=== PATIENT | male | born 1980 | race Caucasian/White ===

== ENCOUNTER 2024-02-02 16:21 | Emergency (ER) | payer BC, SELFPAY ==
[2024-02-02 16:22] VITALS: BP 149/81
[2024-02-02 16:40] LABS: % Basophils 0.3 % (0-2); % Eosinophils 0.5 % (0-6); % Immature Granulocytes 0.2 % (0-0.5); % Lymphocytes 13.4 % (20.5-51.1); % Monocytes 5.1 % (1.7-9.3); % Neutrophils 80.5 % (42.2-75.2); Absolute Eosinophils 0.1 10^3/uL (0-0.7); Absolute Lymphocytes 1.8 10^3/uL (1.2-3.4); Absolute Monocytes 0.7 10^3/uL (0.1-0.6); Absolute Neutrophils 10.5 10^3/uL (1.4-6.5); Hematocrit 44.2 % (39.0-52.0); Hemoglobin 15.3 g/dL (13.0-18.0); Mean Corp Hgb Conc. 34.6 g/dL (33.0-37.0); Mean Corpuscular Hgb 27.9 pg (27.0-31.0); Mean Corpuscular Volume 80.5 fL (80.0-94.0); Mean Platelet Volume 10.5 fL (7.4-10.4); Nucleated Red Blood Cells % 0 % (-); Platelet Count 176 10^3/uL (130-400); Red Blood Cell Count 5.49 10^6/uL (4.70-6.10); Red Cell Dist. Width 13.9 % (11.5-14.5)
[2024-02-02 16:55] LABS: ALT (SGPT) 28 U/L (0-50); AST (SGOT) 30 U/L (17-59); Albumin 4.6 g/dl (3.5-5.0); Alkaline Phosphatase 57 U/L (38-126); Blood Urea Nitrogen 14 mg/dl (9-20); Calcium 9.3 mg/dl (8.4-10.2); Carbon Dioxide 29 mmol/L (22-30); Chloride 100 mmol/L (98-107); Glucose 113 mg/dl (70-99); Potassium 3.7 mmol/L (3.5-5.1); Sodium 134 mmol/L (135-145); Total Bilirubin 0.9 mg/dl (0.2-1.3); Total Protein 7.4 g/dl (6.3-8.2); eGFR > 60.00
[2024-02-02 16:56] LABS: COVID-19 Antigen Negative (Negative)
--- NOTE | 2024-02-02 17:15 | ED.GENMED ---
History of Present Illness
General
Chief Complaint: Skin Problem
Time Seen by Provider: 02/02/24 16:49
History of Present Illness
History of Present Illness:
40-year-old male presents the emergency department for evaluation of left upper arm swelling and pain as well as tactile fevers and chills. 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 Symptoms
began shortly after that time. Denies any chest pain but does have a fever of 100.3 earlier today.
Past History
Past History
ED Past Medical History: HTN (takes Diovan)
ED Past Surgical History: Other (ENT)
Social History
Tobacco: Non-smoker
Alcohol: Occasional
Drug: None
Personal:
Living: with family
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
Review of Systems
Review of Systems
Allergies reviewed?: Yes
All Other Systems: ROS reviewed and negative except as documented in HPI and ROS
Phy Exam
Physical Exam
Physical Exam:
GEN: Well appearing, NAD, WDWN
HEENT: Oral mucosa moist, no scleral icterus
Cardiac: Regular rate
Lung: No respiratory distress, no tachypnea
MSK: No gross deformity or injuries. Erythema to the left medial antecubital fossa extending to the proximal arm and overlying the medial upper condyle, quite firm and tender to palpation
Skin: Good color, no pallor or jaundice, no rashes
Neuro: AO x3, moves all extremities freely
Psych: Calm, cooperative
Course
Orders/Labs/Results
Orders:
Orders
02/02/24 16:29
Arms, left US [US Periph Venous UPPER Ext LT] Urgent
Comment: recent IV
Reason For Exam: swelling and redness in left antecube area
02/02/24 16:34
COVID-19 Antigen Urgent
Source: Nasal Swab
Complete Blood Count/With Diff Urgent
Comprehensive Metabolic Panel Urgent
02/02/24 17:16
Cephalexin Monohydrate [Keflex] 500 mg PO NOW STA
Abnormal Lab Results
02/02/24
16:34
WBC 13.0 H 10^3/uL
(4.8-10.8)
MPV 10.5 H fL
(7.4-10.4)
Absolute Neuts (auto) 10.5 H 10^3/uL
(1.4-6.5)
Absolute Monos (auto) 0.7 H 10^3/uL
(0.1-0.6)
Neutrophils % 80.5 H %
(42.2-75.2)
Lymphocytes % 13.4 L %
(20.5-51.1)
Sodium 134 L mmol/L
(135-145)
Glucose 113 H mg/dl
(70-99)
02/02/24 16:34
02/02/24 16:34
Vital Signs
Initial and Last Documented VS:
Initial Vital Signs
Temp Pulse Resp BP Pulse Ox
99.6 F 92 18 149/81 98
02/02/24 16:22 02/02/24 16:22 02/02/24 16:22 02/02/24 16:22 02/02/24 16:22
Last Documented Vital Signs
Temp Pulse Resp BP Pulse Ox
99.6 F 92 18 149/81 98
02/02/24 16:22 02/02/24 16:22 02/02/24 16:22 02/02/24 16:22 02/02/24 16:22
MDM/Problems Addressed
MDM/Problems Addressed:
Ultrasound confirms superficial thrombophlebitis which is likely contributing to worsening cellulitis at this time. Will start the patient on aspirin and antibiotics
*Critical Care Note
Total Time (30-74mins, 75-104mins- exclusive of procedures): Not Applicable
ED Attending Note
-
Portions of this chart may have been created with voice recognition software.� Occasional wrong word or��sound alike� substitutions may have occurred due to the inherent limitations of voice recognition software.
Discharge Plan
Departure
Patient Disposition: Home (Routine Discharge)
Date of Disposition: 02/02/24
Time of Disposition: 17:15
Patient with high blood pressure during this ER visit?: No
Discharge Problem:
Cellulitis of left upper arm, Superficial thrombophlebitis of left upper extremity
Instructions: Cellulitis (Skin Infection), Adult (DC)
Prescriptions:
New
cephalexin 500 mg capsule
500 mg PO QID 7 Days Qty: 28 0RF
No Action
sulfamethoxazole-trimethoprim 1 TABLET tablet
1 tab PO BID Qty: 14 0RF
metronidazole 500 MG tablet
500 mg PO TID Qty: 21 0RF
dicyclomine 20 MG tablet
20 mg PO QIDPRN PRN (Reason: abdominal pain) Qty: 20 0RF
prednisone 50 MG tablet
50 mg PO DAILY Qty: 4 0RF
oxycodone-acetaminophen [Percocet] 5-325 mg tablet
1 tab PO Q4HPRN PRN (Reason: pain) Qty: 10 0RF
ibuprofen 600 mg tablet
600 mg PO Q6H Qty: 20 0RF
Referrals:
Naa Nogueira MD [Family Provider] -
Stand Alone Forms: Return to Work
Activity Restrictions/Additional Instructions:
Warm compresses to the arm twice per day
Full dose (325mg) aspirin once per day for 10-14 days
Take the antibiotics in full
Return if symptoms worsen
Interventions
Interventions:
*Risk Screen - Suicide Last Done: 02/02/24 16:24
*General Assessment Last Done: 02/02/24 16:24
*Neglect/Abuse Screening Last Done: 02/02/24 16:24
*Nursing Disposition Last Done: 02/02/24 17:56
ED-Skin Assessment Last Done: 02/02/24 17:15
Discharge Date and Time
Discharge Date/Time: 02/02/24 17:57
Print Language: LIBERIAN
[2024-02-02] MEDS: KEFLEX 500 MG PO (17:23)
== END 2024-02-02 17:57 | disposition home or self-care (01) ==
LOC: EMR 16:21
PROVIDERS: EMERGENCY PHYSICIAN Emergency Medicine; FAMILY PHYSICIAN Family Medicine
DX: L03.114 Cellulitis of left upper limb (principal); I80.8 Phlebitis and thrombophlebitis of other sites
CPT/HCPCS: 99284; 80053; 85025; 87811; 93971

== ENCOUNTER 2024-02-06 21:41 | Inpatient (IN) | payer BC, SELFPAY ==
[2024-02-06 17:45] VITALS: BP 182/110
--- NOTE | 2024-02-06 18:23 | ED.GENMED ---
History of Present Illness
<Jeramy Parikh PA-C - Last Filed: 02/06/24 22:30>
General
Chief Complaint: Skin Problem
Time Seen by Provider: 02/06/24 18:18
History of Present Illness
History of Present Illness:
43-year-old male with history of hypertension and hyperlipidemia presents to the emergency department for evaluation of worsening left upper arm swelling and redness. I saw him 4 days ago in this emergency department and started him on cephalexin,
he was prescribed a 7-day course however he completed the antibiotics today. He states that the symptoms have worsened despite that. Denies any fevers or chills. The initial event started shortly after having an IV placed as part of a training
session as he works for [employer]. Of note during his last ER visit an ultrasound was obtained showingA focal nonocclusive thrombus within the basilic vein in the antecubital fossa with no evidence for DVT
Past History
<Jeramy Parikh PA-C - Last Filed: 02/06/24 22:30>
Past History
ED Past Medical History: HTN (takes Diovan)
ED Past Surgical History: Other (ENT)
Social History
Tobacco: Non-smoker
Alcohol: Occasional
Drug: None
Personal:
Living: with family
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
Review of Systems
<Jeramy Parikh PA-C - Last Filed: 02/06/24 22:30>
Review of Systems
Allergies reviewed?: Yes
All Other Systems: ROS reviewed and negative except as documented in HPI and ROS
Phy Exam
<Jeramy Parikh PA-C - Last Filed: 02/06/24 22:30>
Physical Exam
Physical Exam:
GEN: Well appearing, NAD, WDWN
HEENT: Oral mucosa moist, no scleral icterus
Cardiac: Regular rate and rhythm
Lung: No respiratory distress, no tachypnea
MSK: No gross deformity or injuries
Skin: Good color, no pallor or jaundice. There is a 3 cm x 3 cm fluctuant abscess to the left medial antecubital fossa, bedside ultrasound reveals heterogenous fluid collection with no evidence of Doppler flow or vasculature within the abscess.
There is erythema extending Proximally along the medial upper arm and distally to the forearm
Neuro: AO x3, moves all extremities freely
Psych: Calm, cooperative
Course
<Jeramy Parikh PA-C - Last Filed: 02/06/24 22:30>
Orders/Labs/Results
Orders:
Orders
02/06/24 19:29
Complete Blood Count/With Diff Urgent
Comprehensive Metabolic Panel Urgent
02/06/24 19:32
HYDROmorphone [Dilaudid] 0.5 mg IV NOW STA
02/06/24 19:58
Vancomycin [Vancocin] 2,000 mg 0.9% Sodium Chloride 500 ml [Nss] 500 ml IV NOW
02/06/24 20:00
VANCOMYCIN Pharmacy to Dose [VANCOCIN Pharmacy to Dose] 1 each Pharmacy To Prepare [Call Pharmacy To Prepare] 0 ml IV PER PROTOCOL
02/06/24 20:25
Wound Culture [Wound/Abscess/Other Culture] Urgent
ABDIRIZAK Source: Abscess
Specimen Description:
Date Specimen was Collected: 02/06/24
Time Specimen was Collected: 20:22
Comment: L arm
02/06/24 20:27
HYDROmorphone [Dilaudid] 0.5 mg IV NOW STA
02/06/24 21:27
Admit/Transfer Patient As Directed
Co-Sign Provider:
Level of Care: Inpatient admission
Assign to:: Medical/Surgical
Physician / Group: John
Diagnosis: LUE Cellulitis / Abscess
Reason for Hospitalization:
LUE Cellulitis / Abscess
Expected length of stay greater than two midnights?: Yes
ELOS- Estimated Length of Stay in days: 2
I certify the patient meets the requirements for IP care: Yes
Code Status As Directed
Resuscitation Status: Full Code
PRN Pain Medication Management As Directed
May give lesser potent ordered pain med per pt: Yes
preference::
Protocol:: Medication orders for pain may be administered in a
manner that supports deferring to patient preference
when the pt is:
- Requesting an ordered lesser potent pain medication.
Least to most potent pain medications are defined
as: acetaminophen < NSAID < tramadol < opioids
(morphine, oxycodone, hydromorphone).
- Requesting a lesser dose of the same medication IF
ORDERED.
- Requesting a less intrusive route of administration
if both routes are prescribed by the provider (PO <
IV).
02/06/24 21:29
Ketorolac [Toradol] 15 mg IV NOW STA
Abnormal Lab Results
02/06/24
19:29
MCV 79.6 L fL
(80.0-94.0)
Absolute Monos (auto) 0.7 H 10^3/uL
(0.1-0.6)
Lymphocytes % 14.8 L %
(20.5-51.1)
Chloride 97 L mmol/L
(98-107)
02/06/24 19:29
02/06/24 19:29
Vital Signs
Initial and Last Documented VS:
Initial Vital Signs
Temp Pulse Resp BP Pulse Ox
98 F 89 16 182/110 98
02/06/24 17:45 02/06/24 17:45 02/06/24 17:45 02/06/24 17:45 02/06/24 17:45
Last Documented Vital Signs
Temp Pulse Resp BP Pulse Ox
99.4 F 88 20 130/80 98
02/06/24 19:15 02/06/24 19:15 02/06/24 19:15 02/06/24 20:34 02/06/24 19:45
<Negrita Moon MD - Last Filed: 02/06/24 21:00>
Orders/Labs/Results
Orders:
Orders
02/06/24 19:29
Complete Blood Count/With Diff Urgent
Comprehensive Metabolic Panel Urgent
02/06/24 19:32
HYDROmorphone [Dilaudid] 0.5 mg IV NOW STA
02/06/24 19:58
Vancomycin [Vancocin] 2,000 mg 0.9% Sodium Chloride 500 ml [Nss] 500 ml IV NOW
02/06/24 20:00
VANCOMYCIN Pharmacy to Dose [VANCOCIN Pharmacy to Dose] 1 each Pharmacy To Prepare [Call Pharmacy To Prepare] 0 ml IV PER PROTOCOL
02/06/24 20:25
Wound Culture [Wound/Abscess/Other Culture] Urgent
ABDIRIZAK Source: Abscess
Specimen Description:
Date Specimen was Collected: 02/06/24
Time Specimen was Collected: 20:22
Comment: L arm
02/06/24 20:27
HYDROmorphone [Dilaudid] 0.5 mg IV NOW STA
02/06/24 21:27
Admit/Transfer Patient As Directed
Co-Sign Provider:
Level of Care: Inpatient admission
Assign to:: Medical/Surgical
Physician / Group: John
Diagnosis: LUE Cellulitis / Abscess
Reason for Hospitalization:
LUE Cellulitis / Abscess
Expected length of stay greater than two midnights?: Yes
ELOS- Estimated Length of Stay in days: 2
I certify the patient meets the requirements for IP care: Yes
Code Status As Directed
Resuscitation Status: Full Code
PRN Pain Medication Management As Directed
May give lesser potent ordered pain med per pt: Yes
preference::
Protocol:: Medication orders for pain may be administered in a
manner that supports deferring to patient preference
when the pt is:
- Requesting an ordered lesser potent pain medication.
Least to most potent pain medications are defined
as: acetaminophen < NSAID < tramadol < opioids
(morphine, oxycodone, hydromorphone).
- Requesting a lesser dose of the same medication IF
ORDERED.
- Requesting a less intrusive route of administration
if both routes are prescribed by the provider (PO <
IV).
02/06/24 21:29
Ketorolac [Toradol] 15 mg IV NOW STA
Abnormal Lab Results
02/06/24
19:29
MCV 79.6 L fL
(80.0-94.0)
Absolute Monos (auto) 0.7 H 10^3/uL
(0.1-0.6)
Lymphocytes % 14.8 L %
(20.5-51.1)
Chloride 97 L mmol/L
(98-107)
02/06/24 19:29
02/06/24 19:29
Vital Signs
Initial and Last Documented VS:
Initial Vital Signs
Temp Pulse Resp BP Pulse Ox
98 F 89 16 182/110 98
02/06/24 17:45 02/06/24 17:45 02/06/24 17:45 02/06/24 17:45 02/06/24 17:45
Last Documented Vital Signs
Temp Pulse Resp BP Pulse Ox
99.4 F 88 20 130/80 98
02/06/24 19:15 02/06/24 19:15 02/06/24 19:15 02/06/24 20:34 02/06/24 19:45
Procedures
<Jeramy Parikh PA-C - Last Filed: 02/06/24 22:30>
Incision/Drainage/Joint Aspiration
Left Arm:
Anethesia: 1% Lidocaine with Epi
Preparation: cleaned with alcohol wipe
Type of procedure: incise and drain
Nature of site: abscess
Description of abscess: greater than 3cm
Loculations broken up: Yes
How much fluid was obtained?: large amount
Fluid description: purulent
Treatment: left open for drainage
<Jeramy Parikh PA-C - Last Filed: 02/06/24 22:30>
MDM/Problems Addressed
MDM/Problems Addressed:
Given failure of outpatient treatment coupled with rapidly developing abscess will treat the patient with IV antibiotics and hospital admission. Bedside I&D was performed with good results. Wound culture sent
<Jeramy Parikh PA-C - Last Filed: 02/06/24 22:30>
*Critical Care Note
Total Time (30-74mins, 75-104mins- exclusive of procedures): Not Applicable
ED Attending Note
<Jeramy Parikh PA-C - Last Filed: 02/06/24 22:30>
-
Portions of this chart may have been created with voice recognition software.� Occasional wrong word or��sound alike� substitutions may have occurred due to the inherent limitations of voice recognition software.
<Negrita Moon MD - Last Filed: 02/06/24 21:00>
ED Attending Note
Patient seen and examined by attending physician: Yes
I performed the substantive portion of visit, reviewed & personally made and approve the management plan that is documented in note by myself or TERENCE.: Yes
ED Attending Note:
43 yr old male with L antecub fossa abscess, tx'd with keflex and getting worse. No f/shaking chills/vomiting. FROM L UE. Obvious area of abscess with surrounding red/warmth. IV abx, I and D, cxs, continued care. Not septic. Do not clinically
suspect nec fasc.
Discharge Plan
Departure
Patient Disposition: Admit
Date of Disposition: 02/06/24
Time of Disposition: 20:00
Admit to: Med/Surg
Presentation/result/management discussed w/ accepting MD/DO: Hospitalist
Discharge Problem:
Cellulitis of arm, left, Abscess of left upper extremity, Failure of outpatient treatment, Superficial thrombophlebitis of left upper extremity
Interventions
Interventions:
*Risk Screen - Suicide Last Done: 02/06/24 18:43
*General Assessment Last Done: 02/06/24 18:43
*Neglect/Abuse Screening Last Done: 02/06/24 18:43
ED- Fall Risk Assessment Last Done: 02/06/24 18:46
*ED COVID-19 Vaccine History Last Done: 02/06/24 18:43
ED-Skin Assessment Last Done: 02/06/24 18:43
[2024-02-06 18:43] VITALS: BMI 38.2
[2024-02-06 19:15] VITALS: BP 144/95
[2024-02-06 19:35] LABS: % Basophils 0.5 % (0-2); % Eosinophils 1.3 % (0-6); % Immature Granulocytes 0.3 % (0-0.5); % Lymphocytes 14.8 % (20.5-51.1); % Monocytes 8.5 % (1.7-9.3); % Neutrophils 74.6 % (42.2-75.2); Absolute Eosinophils 0.1 10^3/uL (0-0.7); Absolute Lymphocytes 1.3 10^3/uL (1.2-3.4); Absolute Monocytes 0.7 10^3/uL (0.1-0.6); Absolute Neutrophils 6.5 10^3/uL (1.4-6.5); Hematocrit 47.5 % (39.0-52.0); Hemoglobin 16.6 g/dL (13.0-18.0); Mean Corp Hgb Conc. 34.9 g/dL (33.0-37.0); Mean Corpuscular Hgb 27.8 pg (27.0-31.0); Mean Corpuscular Volume 79.6 fL (80.0-94.0); Nucleated Red Blood Cells % 0 % (-); Platelet Count 191 10^3/uL (130-400); Red Blood Cell Count 5.97 10^6/uL (4.70-6.10); Red Cell Dist. Width 13.8 % (11.5-14.5); White Blood Cell Count 8.7 10^3/uL (4.8-10.8)
[2024-02-06] MEDS: DILAUDID 0.5 MG IV ×2 (19:39→20:35)
[2024-02-06 19:57] LABS: ALT (SGPT) 33 U/L (0-50); AST (SGOT) 33 U/L (17-59); Albumin 4.9 g/dl (3.5-5.0); Alkaline Phosphatase 66 U/L (38-126); Blood Urea Nitrogen 15 mg/dl (9-20); Calcium 9.3 mg/dl (8.4-10.2); Carbon Dioxide 28 mmol/L (22-30); Chloride 97 mmol/L (98-107); Estimated Creatinine Clearance 113 ml/min; Glucose 86 mg/dl (70-99); Potassium 4.2 mmol/L (3.5-5.1); Sodium 141 mmol/L (135-145); Total Bilirubin 0.6 mg/dl (0.2-1.3); eGFR > 60.00
[2024-02-06 20:34] VITALS: BP 130/80
[2024-02-06] MEDS: VANCOCIN 540 MG IV (20:42)
--- NOTE | 2024-02-06 21:30 | HPS.HSE ---
Family Physician
-
Family Physician: Naa Nogueira
Chief Complaint
-
LUE Pain, swelling and redness
History of Present Illness
Patient is a 43y M with PMH significant for TBI, anxiety and insomnia who presents to ED complaining of LUE pain, swelling and redness. 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 About 4
days ago, he noted an area of swelling and redness in the L antecubital area. He presented to the ED here and was noted to have superficial thrombophlebitis of the L antecubital region with associated cellulitis. He was started on ASA and Keflex
at that time. Patient states that his symptoms did not change much in the past few days. Then today, he appreciated rather abrupt and progressive worsening of his symptoms. He noted significant pain and difficulty with movement of the LUE. He
returned the to the ED for evaluation.
He was noted to have an area of fluctuance c/w abscess formation and I&D was performed at the bedside by ED staff.
Patient continues to complain of significant pain following the procedure.
Medical History
Past Medical History
Past Medical History: Reports Other
Additional Past Medical History:
Anxiety / PTSD
TBI (2022)
Hypertension
TAMI on BiPAP
Insomnia
Obesity
Past Surgical History: Reports None
Social History
Tobacco: Non-smoker
Alcohol: Occasional
Drug: None
Family History
Family History: Not pertinent
Allergies / Home Medications
Allergies reflects when Allergies were last updated in [facility].
Home Medications with original date entered in [facility]
Allergy/Medication List:
Allergies
Allergy/AdvReac Type Severity Reaction Status Date / Time
levofloxacin [From Levaquin] Allergy pulmonary Verified 02/06/24 17:47
edema
Home Medications
clonazepam 1 mg tablet 1 mg PO HS PRN Insomnia 02/06/24
semaglutide (weight loss) 0.5 mg/0.5 mL subcutaneous pen injector (Wegovy) 0.5 mg SC QWEEK 02/06/24
testosterone cypionate 200 mg/mL intramuscular kit 200 mg IM Q2W 02/06/24
tramadol 25 mg tablet 25 mg PO Q6H PRN Pain / Headache 02/06/24
zolpidem 10 mg tablet (Ambien) 10 mg PO HS 02/06/24
Review of Systems
-
History Source: Patient
Constitutional: Reports Fever; Denies Fatigue or Chills
EENT: Denies Sore Throat
Respiratory: Denies Cough or Trouble Breathing
Cardiac: Denies Chest Pain or Palpitations
Abdomen/GI: Denies Abdominal Pain, Nausea, Vomiting or Diarrhea
: Denies Dysuria, Frequency or Flank Pain
Musculoskeletal: Reports Joint Pain, Joint Swelling, Muscle Pain and Edema
Skin: Reports Other (Redness)
Neurological: Denies Dizzy or Headache
Psych: Denies Depression or Anxiety
Physical Exam
Vital Signs
Vital Signs
Temp Pulse Resp BP Pulse Ox
99.4 F 88 20 130/80 98
02/06/24 19:15 02/06/24 19:15 02/06/24 19:15 02/06/24 20:34 02/06/24 19:45
Physical Exam
General: Other (43y M in mild distress due to LUE pain.)
HEENT: Moist mucous membranes, PERRLA and Other (Thick neck.)
Respiratory: Clear; No Wheezes, Rales or Rhonchi
Cardiac: S1/S2 and Regular Rhythm; No Murmur
GI: Soft, Non Tender, Non Distended and Normal Bowel Sounds
Musculoskeletal: No Clubbing, No Cyanosis and Other (ROM intact in the LUE. Some discomfort with elbow flexion - but movement intact.)
Skin: Other (LUE antecubital area with induration and focal tenderness. Some strikethrough over dressings applied to I&D / abscess area. No visible lymphangitis.)
Neuro: AO x 3
Laboratory Results
-
02/06/24 19:29
02/06/24 19:
Laboratory Results
Total Bilirubin 0.6 mg/dl (0.2-1.3) 02/06/24 19:29
AST 33 U/L (17-59) 02/06/24 19:
ALT 33 U/L (0-50) 02/06/24 19:29
Alkaline Phosphatase 66 U/L (38-126) 02/06/24 19:29
Impression/Plan
-
A/P: Patient is a 43y M with PMH significant for TBI, anxiety and insomnia who presents to ED complaining of LUE pain, swelling and redness.
LUE Cellulitis / Abscess
- Admit for further evaluation and treatment.
- Failed OP therapy with Keflex and now with new development of abscess.
- I&D done at the bedside in the ED.
- Follow-up culture data.
- Continue IV Vanco for now and adjust as needed.
- Supportive care, pain control, etc.
- Surgery evaluation in the event that additional I&D is needed.
Anxiety / PTSD
Insomnia
TAMI
- Stable. Continue nightly BiPAP - patient brought machine from home.
- Continue usual med regimen for now.
- Rx confirmed via PDMP.
Benign Hypertension
- Patient is not on any medications for BP as an outpatient.
- Follow BP and begin treatment if needed.
Hypogonadism
- Can hold testosterone during inpatient stay.
Obesity due to excess calories
- Affects all aspects of care.
- Hold Wegovy during inpatient stay.
- Encourage healthy diet and increased exercise with goal of weight loss.
DVT Prophylaxis: Lovenox
Code Status: Full
[2024-02-06] MEDS: TORADOL 15 MG IV (21:43)
[2024-02-06 23:53] VITALS: BP 142/92; BMI 36.6
[2024-02-07] MEDS: AMBIEN 10 MG PO ×2 (01:14→22:04)
[2024-02-07] MEDS: DILAUDID 0.5 MG IV ×2 (01:14→08:19)
[2024-02-07] MEDS: NSS 1000 IV ×2 (01:14→07:41)
[2024-02-07] MEDS: ZOSYN 50 IV ×3 (07:40→20:51)
[2024-02-07 07:45] VITALS: BP 158/97
--- NOTE | 2024-02-07 07:58 | PHA.VAN.IN ---
Assessment
- Assessment
Renal Function: Appears similar to baseline
Renal Function may be Overestimated due to: obesity
Concomitant Antimicrobials: pip/tazo
AUC Dosing Plan
- Dosing Variables
Dosing Weight (kg): 115
Dosing CrCl (ml/min): 100
Vd coefficient (L/kg): 0.6
- Empiric Dosing
Initial / Loading Dose: 2000 mg - given 02/05 ~2041
Maintenance Regimen: 1500 mg q12h - first dose now
Estimated AUC (mcg*h/mL): 530
Estimated Peak (mcg*h/mL): 33.5
Estimated Trough (mcg/ml): 13.4
Estimated Half Life (H): 7.9
- Monitoring
No levels ordered at this time: consider levels when pt nears steady state
Pharmacokinetics Vancomycin I
- -
Patient Age: 43
Patient Sex: Male
Vancomycin Day #: 1
Indication: Skin And Soft Tissue
Requesting Provider: ROBINA
Pertinent Antimicrobial Allergies:
levofloxacin -> pulmonary edema
Height / Weight:
Height 5 ft 10 in
Actual Weight 115.666 kg
Pertinent Past Medical History: BMI~36;TBI (2022)
- Vital Signs / Lab Results
Temp Pulse Resp BP Pulse Ox
97.6 F 84 20 142/92 98
02/06/24 23:53 02/06/24 23:53 02/06/24 23:53 02/06/24 23:53 02/07/24 01:00
Lab Results - Hematology
02/06/24
19:29
WBC 8.7
Lab Results - Chemistry
02/06/24
19:29
BUN 15
Creatinine 1.1
Estimated Creat Clear 113
Albumin 4.9
[2024-02-07 09:22] LABS: Hematocrit 44.2 % (39.0-52.0); Mean Corp Hgb Conc. 33.9 g/dL (33.0-37.0); Mean Corpuscular Hgb 28.2 pg (27.0-31.0); Mean Corpuscular Volume 83.1 fL (80.0-94.0); Mean Platelet Volume 10.2 fL (7.4-10.4); Platelet Count 182 10^3/uL (130-400); Red Blood Cell Count 5.32 10^6/uL (4.70-6.10); Red Cell Dist. Width 13.8 % (11.5-14.5); White Blood Cell Count 7.1 10^3/uL (4.8-10.8)
[2024-02-07 09:33] LABS: Blood Urea Nitrogen 14 mg/dl (9-20); Calcium 8.9 mg/dl (8.4-10.2); Carbon Dioxide 28 mmol/L (22-30); Chloride 100 mmol/L (98-107); Estimated Creatinine Clearance 101 ml/min; Glucose 85 mg/dl (70-99); Potassium 4.4 mmol/L (3.5-5.1); Sodium 140 mmol/L (135-145); eGFR > 60.00
[2024-02-07] MEDS: VANCOCIN 300 MG IV ×2 (09:47→16:42)
[2024-02-07] MEDS: VANCOCIN 300 ML IV ×2 (09:47→16:42)
[2024-02-07] MEDS: TORADOL 15 MG IV (09:48)
--- NOTE | 2024-02-07 11:19 | W.PN.HOSP.TC ---
Today's Communication/Plan
-
cont Vanco/Zosyn
Bcx
GenSx consult
CT LUE
Stop IVF
Assessment / Plan
Assessment / Plan
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 fluid collection was I&D in ED
A/P:
#L antecubital septic thrombophlebitis with abscess
CT LUE
VAnco/Zosyn
Bcx and Wound Cx
GenSx follow up
Pain mgmt
#TAMI
cont CPAP
#EssentiaL HTN
cont home meds
#Obesity
on Wygovi at home
DVT ppx lovenox
Full code'
I have spent at least 56min reviewing the chart, lab results and providing direct patient care
Anticipated Discharge: > 48 hours
Subjective/Interval History
-
Date of Service: February 07, 2024
Objective Data
-
Labs:
Laboratory Results
02/07/24
08:11
WBC 7.1
Hgb 15.0
Hct 44.2
Plt Count 182
Sodium 140
Potassium 4.4
Chloride 100
Carbon Dioxide 28
BUN 14
Creatinine 1.2
Glucose 85
Calcium 8.9
Vital Signs:
Vital Signs
Temp Pulse Resp BP Pulse Ox
97.9 F 72 20 158/97 99
02/07/24 07:45 02/07/24 07:45 02/07/24 07:45 02/07/24 07:45 02/07/24 07:45
I&O
02/06/24 02/07/24 02/08/24
06:59 06:59 06:59
Intake Total 480 / 480
Balance 480 / 480
Review of Systems
-
History Source: Patient
All other systems: Reviewed and negative
Musculoskeletal: Reports Other (severe LUE pain)
Physical Exam
-
General: No Apparent Distress
HEENT: Normocephalic
Respiratory: Clear to Auscultation
Cardiac: Regular Rhythm
GI: Soft, Nontender and Nondistended
Musculoskeletal: No Clubbing, No Cyanosis and Other (redness and swelling of L anecubital fossa)
Neuro: Awake, Alert, Oriented and AO x 3
Psych: Calm
[2024-02-07] MEDS: DILAUDID 1 MG IV ×3 (12:16→21:15)
--- NOTE | 2024-02-07 12:48 | CON.GS ---
Addendum entered and electronically signed by Dallin Rabago MD 02/07/24 13:12:
I saw and examined the patient independently.
The Supervisor Rice Milling's note was reviewed and I agree with the note, assessment and plan except where noted below.
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 He did have a minor I&D performed in the ED with some improvement however there is
still significant indurated skin with a necrotic center. He did undergo a CT of the left upper extremity which demonstrated a residual collection. General surgery was consulted to perform an I&D. Please see separate dictated note.
Continue IV antibiotics, can transition to oral on discharge per primary.
Wound care instructions reviewed with patient:
-Change packing daily.
-No bathing, soaking, swimming. Okay to shower shower (remove dressing before hand) soap and water, pat dry and then place a fresh iodoform packing into the wound.
This will continue to heal by secondary intention from the inside out. I explained that this may take 2 to 3 weeks to fully heal.
Please have the patient see me in the office 1 week from now to assess wound healing.
All questions answered, patient agreeable to plan of care above.
Original Note:
Consultation
-
Date/Time Consultation Requested: 02/07/24 1111
Requesting Provider: Nolan
Reason for Consultation: L antecubital thrombophlebitis
Medical History
-
Chief Complaint: pain to left antecub
History of Present Illness:
Mr Romo is a 43 yo right hand dominant male with a h/o tbi 2022, anxiety/ptsd, tami on bipap who presented with erythema to the left antecub which began about 3- 4 days ago after his arm was used by a trainee to practice IV insertion. I&D was
preformed in the ED with improvement in surrounding erythema however the area is still indurated with necrotic skin to the center. He notes that the pain is quite severe to the area. He denies fevers or chills. He denies pain or numbness. Pulses to
the extremity are strong.
Past Medical History
Past Medical History: Psychiatric (anxiety/ptsd) and Other (TAMI with BIPAP, TBI 2022)
Past Surgical History: None
Social History
Tobacco: Non-Smoker
Alcohol: Occasional
Personal:
Living: With Family
Family History
Family History: Reviewed & Not Pertinent
Allergies / Home Medications
Allergy/AdvReac Type Severity Reaction Status Date / Time
levofloxacin [From Levaquin] Allergy pulmonary Verified 02/06/24 17:47
edema
�Medication �Instructions �Recorded �Confirmed �Type
clonazepam 1 mg tablet 1 mg PO HSPRN PRN Insomnia 02/06/24 02/07/24 History
semaglutide (weight loss) 0.5 0.5 mg SC QWEEK Diabetes 02/06/24 02/06/24 History
mg/0.5 mL subcutaneous pen
injector (Wegovy)
testosterone cypionate 200 mg/mL 200 mg IM Q2W Hormonal Agent 02/06/24 02/06/24 History
intramuscular kit
tramadol 25 mg tablet 25 mg PO Q6H PRN Pain / Headache 02/06/24 02/06/24 History
zolpidem 10 mg tablet (Ambien) 10 mg PO HS Sleep 02/06/24 02/06/24 History
diphenhydramine HCl 50 mg capsule 50 mg PO HS Sleep 02/07/24 02/07/24 History
metoprolol succinate 50 mg 50 mg PO DAILY Blood Pressure 02/07/24 02/07/24 History
tablet,extended release 24 hr
valsartan 320 mg tablet 320 mg PO DAILY Blood Pressure 02/07/24 02/07/24 History
Review of Systems
-
History Source: Patient and Family
All other systems: Negative unless noted
A 10 point review of systems was completed, and was negative except as per HPI.
Physical Exam
Vital Signs
Temp Pulse Resp BP Pulse Ox
97.9 F 72 20 158/97 99
02/07/24 07:45 02/07/24 07:45 02/07/24 07:45 02/07/24 07:45 02/07/24 07:45
02/06/24 02/07/24 02/08/24
06:59 06:59 06:59
Actual Weight 115.666 kg
Body Mass Index (BMI) 36.6
Lab Results
02/07/24 08:11
02/07/24 08:11
WBC 7.1 10^3/uL (4.8-10.8) 02/07/24 08:11
Hgb 15.0 g/dL (13.0-18.0) 02/07/24 08:11
Hct 44.2 % (39.0-52.0) 02/07/24 08:11
Plt Count 182 10^3/uL (130-400) 02/07/24 08:11
Abs Immat Gran (auto) 0.0 10^3/uL (0-0.05) 02/06/24 19:29
Neutrophils % 74.6 % (42.2-75.2) 02/06/24 19:29
Physical Exam
General: Well Developed and Well Nourished
HEENT: Moist Mucous Membranes
Respiratory: Non Labored Respirations
GI: Soft, Non Tender and Non Distended
Skin: Warm and Dry
Neuro: Awake, Alert and AO x 3
Psych: Calm
Data Reviewed
-
CT Scan: Image Personally Visualized and interpreted, Report Reviewed by me, Discussed with Physician, Discussed with Nurse, Discussed with Patient and Discussed with Family
Labs: Labs Reviewed by me, Discussed with Physician, Discussed with Nurse, Discussed with Patient and Discussed with Family
Old Records: Reviewed
Assessment / Plan
-
43 yo male presenting with LUE edema, erythema and pain progressively worsening after IV insertion 3-4 days ago. s/p I&D in ED but with residual fluctuance and induration. CT of the LUE with abscess/fluid collection present. AFVSS. No leukocytosis.
Pain persistent. Wound and blood cx pending.
--I&D done at bedside, see procedure note
--Continue analgesics
--Continue ABX
--Aerobic and anaerobic cx sent
--Will reevaluate wound in AM. Patient shown how to do dressing change at bedside.
--- NOTE | 2024-02-07 12:49 | W.PN.UPDATE ---
Update Note
Progress Note Update
Bedside incision and Drainage
A team time-out was performed confirming the location/laterality of the procedure, consent and allergies reviewed.
Location: Left upper extremity antecubital fossa
Dimensions: 4 x 3 cm
Local: 1% Lidocaine with epinephrine
Telemarketer: Mariola Granados
The skin was cleaned with alcohol and anesthetized with 10cc of 1% lidocaine. A cruciate incision was made through the skin of the antecubital fossa over the area of necrotic skin and dissection carried down through subcutaneous tissue. The abscess
cavity was identified and cultured. The wound was irrigated with sterile saline. Hemostasis was obtained. There was minimal blood loss. The skin was packed with quarter inch iodoform packing strip. Specimens were sent to Pathology/Culture. The
patient tolerated the procedure well, discharge instructions reviewed and all questions were answered.
[2024-02-07 15:41] VITALS: BP 156/99
[2024-02-07] MEDS: LOVENOX 40 MG SC (16:42)
[2024-02-07] MEDS: BENADRYL 50 MG PO (22:04)
[2024-02-07 23:30] VITALS: BP 141/82
[2024-02-08] MEDS: ZOSYN 50 IV ×2 (02:44→10:29)
[2024-02-08] MEDS: DILAUDID 1 MG IV ×5 (03:45→23:36)
[2024-02-08] MEDS: VANCOCIN 300 ML IV ×2 (05:36→18:20)
[2024-02-08] MEDS: VANCOCIN 300 MG IV ×2 (05:36→18:20)
[2024-02-08 08:00] VITALS: BP 162/93
[2024-02-08 08:04] LABS: % Basophils 0.7 % (0-2); % Immature Granulocytes 0.7 % (0-0.5); % Lymphocytes 23.2 % (20.5-51.1); % Monocytes 8.9 % (1.7-9.3); % Neutrophils 63.5 % (42.2-75.2); Absolute Eosinophils 0.2 10^3/uL (0-0.7); Absolute Lymphocytes 1.3 10^3/uL (1.2-3.4); Absolute Monocytes 0.5 10^3/uL (0.1-0.6); Absolute Neutrophils 3.6 10^3/uL (1.4-6.5); Hematocrit 46.7 % (39.0-52.0); Hemoglobin 15.7 g/dL (13.0-18.0); Mean Corp Hgb Conc. 33.6 g/dL (33.0-37.0); Mean Corpuscular Hgb 28.1 pg (27.0-31.0); Mean Corpuscular Volume 83.7 fL (80.0-94.0); Mean Platelet Volume 9.9 fL (7.4-10.4); Nucleated Red Blood Cells % 0 % (-); Platelet Count 191 10^3/uL (130-400); Red Blood Cell Count 5.58 10^6/uL (4.70-6.10); White Blood Cell Count 5.6 10^3/uL (4.8-10.8)
[2024-02-08 08:47] LABS: ALT (SGPT) 30 U/L (0-50); AST (SGOT) 27 U/L (17-59); Albumin 4.3 g/dl (3.5-5.0); Alkaline Phosphatase 66 U/L (38-126); Blood Urea Nitrogen 11 mg/dl (9-20); Calcium 9.3 mg/dl (8.4-10.2); Carbon Dioxide 27 mmol/L (22-30); Chloride 103 mmol/L (98-107); Estimated Creatinine Clearance 110 ml/min; Glucose 88 mg/dl (70-99); Potassium 4.9 mmol/L (3.5-5.1); Sodium 142 mmol/L (135-145); Total Bilirubin 0.4 mg/dl (0.2-1.3); Total Protein 7.1 g/dl (6.3-8.2); eGFR > 60.00
--- NOTE | 2024-02-08 09:13 | W.PN.GS2 ---
Today's Communication / Plan
-
Dispo planning
Assessment / Plan
-
This is a 43-year-old male with a left upper extremity antecubital fossa infected traumatic wound.
Wound care:
Okay to shower, remove old packing let soap and water wash over the wound and then pat dry. Replace packing strip and cover with gauze and secure in place with kerlix wrap.
Given its location, recommend setting up VNA or if family members are able to, wound care teaching in the hospital before discharge.
Will continue antibiotics per primary (I would recommend a 2-week course)
Follow-up cultures/sensitivities.
Patient to follow-up with me in 1 week
Time Spent
Total Time Spent with Patient (in minutes): 20
Subjective Data
-
Date of Service: February 08, 2024
Interval Events:
No acute events overnight. Wound had to be changed 3 times due to discharge. Pain Controlled.
Objective Data
-
Intake and Output
02/07/24 02/08/24 02/09/24
06:59 06:59 06:59
Intake Total 480 / 480 1140 / 1140
Balance 480 / 480 1140 / 1140
Intake:
Oral fluids 480 / 480 1140 / 1140
Other:
Number of approximated MODERATE 2 6
amounts of urine
Vital Signs
Temp Pulse Resp BP Pulse Ox
97.9 F 75 16 162/93 99
02/08/24 08:00 02/08/24 08:00 02/08/24 08:00 02/08/24 08:00 02/08/24 08:00
Lab Results
02/08/24 07:24
02/08/24 07:24
Calcium 9.3 mg/dl (8.4-10.2) 02/08/24 07:24
Total Bilirubin 0.4 mg/dl (0.2-1.3) 02/08/24 07:24
AST 27 U/L (17-59) 02/08/24 07:24
ALT 30 U/L (0-50) 02/08/24 07:24
Alkaline Phosphatase 66 U/L (38-126) 02/08/24 07:24
Total Protein 7.1 g/dl (6.3-8.2) 02/08/24 07:24
Albumin 4.3 g/dl (3.5-5.0) 02/08/24 07:24
Physical Exam
-
GENERAL/NEURO: Awake, Alert, no distress
CHEST: Unlabored breathing on RA
EXTREMITIES: warm, well perfused, no jaundice, no cyanosis, no edema. Punctate wound repacked at bedside. It was gently probed and no additional abscess cavity or fluid was expressed. There is still stable but significant erythema surrounding the
wound.
[2024-02-08] MEDS: TOPROL XL 50 MG PO (09:20)
[2024-02-08] MEDS: DIOVAN 320 MG PO (09:20)
[2024-02-08] MEDS: DILAUDID IV (09:25)
--- NOTE | 2024-02-08 10:23 | CM ---
Addendum entered by Olimpia Ortiz 02/08/24 14:45:
Call with wound center, confirmed receipt of clinicals
Center nurse will review clinicals and call pt for appt
Original Note:
CM met with pt bedside
Pt resides with his spouse in a 3SH with 2 ROM, full flight to second floor
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
He is independent with his ADLs, has his home bipap bedside
PCP- Naa Nogueira
Rx- [facility] [address]
Pt with I&D of arm abscess
Will need wound care on dc per surgery
Per patient, plans to return to work this week- not homebound
Pt notes he is able to handle wound care at home with bedside teaching, spouse available to assist if needed
Also interested in outpatient wound care
Call with wound center, next new patient appt on 02/21
Will need outpt wound care order and dc paperwork faxed to [phone]
Clinicals faxed to wound center to start intake process
Update to both surgery/Dr Michael and attending/Dr Davila
Nursing updated with request for bedside teaching
Private duty nursing info placed in dc folder per pt request
[facility] info and contact number included
Discharge Disposition- home with outpt wound care
--- NOTE | 2024-02-08 10:41 | PHA.VAN.FU ---
Addendum entered and electronically signed by Joy Baeza RPH 02/08/24 16:10:
BUN & SCR ordered per protocol
Addendum entered and electronically signed by Joy Baeza [facility] 02/08/24 11:11:
Agree with resident's assessment and plan.
Original Note:
Vancomycin Assessment / Plan
- Assessment
Renal Function: Stable
WBC's are: WNL
In the past 24 hrs, patient has been: Afebrile
Concomitant Antimicrobials: Pipercillin/Tazobactam
- Dosing Plan
Continue: 1500mg Q12H
- Monitoring Plan
Peak Level: 02/07 2100
Trough Level: 02/08 0530
Monitoring Comments: Levels to be drawn after the 4th maintenance dose
- Follow Up
Pharmacy will continue to follow.
Vancomycin Follow UP
- -
Patient Age: 43
Patient Sex: Male
Vancomycin Day #: 2
Indication: Skin And Soft Tissue
Requesting Provider: ROBINA
Pertinent Antimicrobial Allergies:
levofloxacin -> pulmonary edema
Height / Weight:
Height 5 ft 10 in
Actual Weight 115.666 kg
Pertinent Past Medical History: BMI~36;TBI (2022)
- Vital Signs / Lab Results
Temp Pulse Resp BP Pulse Ox
97.9 F 75 16 162/93 99
02/08/24 08:00 02/08/24 09:20 02/08/24 08:00 02/08/24 09:20 02/08/24 08:00
Lab Results - Hematology
02/06/24 02/07/24 02/08/24
19:29 08:11 07:24
WBC 8.7 7.1 5.6
Lab Results - Chemistry
02/06/24 02/07/24 02/08/24
19:29 08:11 07:24
BUN 15 14 11
Creatinine 1.1 1.2 1.1
Estimated Creat Clear 113 101 110
Albumin 4.9 4.3
Microbiology Results
02/07/24 13:04 Gram Stain - Preliminary
Arm - Left
02/06/24 20:25 Gram Stain - Preliminary
Abscess
--- NOTE | 2024-02-08 11:22 | W.PN.HOSP.TC ---
Today's Communication/Plan
-
Continue with IV antibiotic
Wound care
ID evaluation
Continue with home BP meds
Assessment / Plan
Assessment / Plan
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 fluid collection was I&D in ED
A/P:
#L antecubital septic thrombophlebitis with abscess
CT noted
VAnco/Zosyn started on admission.
s/p I&D at bedside by surgery. Culture sent to lab.
Wound care changes of management per surgery. Recommend outpatient VNA versus wound care center follow-up.
Pain mgmt
Blood cultures pending.
Will ask ID for recs for antibiotics.
#TAMI
cont CPAP
#Left pectoralis muscle tear
rest. avoid strenuous work out.
#EssentiaL HTN
cont Diovan 320 mg daily
#Obesity
on Wygovi at home
DVT ppx lovenox
Full code'
Anticipated Discharge: Within 24 hours
Subjective/Interval History
-
Date of Service: February 08, 2024
states of mild improvement in pain
Objective Data
-
Labs:
Laboratory Results
02/08/24
07:24
WBC 5.6
Hgb 15.7
Hct 46.7
Plt Count 191
Sodium 142
Potassium 4.9
Chloride 103
Carbon Dioxide 27
BUN 11
Creatinine 1.1
Glucose 88
Calcium 9.3
Total Bilirubin 0.4
AST 27
ALT 30
Alkaline Phosphatase 66
Vital Signs:
Vital Signs
Temp Pulse Resp BP Pulse Ox
97.9 F 75 16 162/93 99
02/08/24 08:00 02/08/24 09:20 02/08/24 08:00 02/08/24 09:20 02/08/24 08:00
I&O
02/07/24 02/08/24 02/09/24
06:59 06:59 06:59
Intake Total 480 / 480 1140 / 1140
Balance 480 / 480 1140 / 1140
Physical Exam
-
General: No Apparent Distress
HEENT: Normocephalic
Respiratory: Clear to Auscultation
Cardiac: Regular Rhythm
GI: Soft, Nontender and Nondistended
Musculoskeletal: No Clubbing and No Cyanosis
Skin: Other (LUE /AC area covered in fresh dressing. )
Neuro: Awake, Alert, Oriented and AO x 3
Psych: Calm
Data Reviewed
-
Total Time Spent with Patient (in minutes): 56
--- NOTE | 2024-02-08 12:27 | CON.ID ---
Addendum entered and electronically signed by Leilani Lambert MD 02/08/24 15:01:
I personally performed a history and physical exam of the patient and discussed management with the resident. I reviewed the resident's note and agree with the documented findings and plan of care HPI/CC.
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
Left antecubital fossa septic thrombophlebitis
Abscess secondary to above
Status-post I&D x2
- Venous duplex - nonocclusive thrombus in left basilic vein in left AC.
--Blood cultures x 2 negative
- Wound culture: staphylococcus aureus.
- Discontinue piperacillin-tazobactam (2 days).
- Continue vancomycin (day 2), pending resistance results.
- Will probably require 4 weeks of antibiotic coverage due to concern for probable infected thrombus.
- Wound care per general surgery.
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
Essential hypertension
Chronic insomnia
Obesity
Hypogonadism
Generalized anxiety disorder
Post-traumatic stress disorder
Obstructive sleep apnea
Original Note:
Consultation
-
Date/Time Consultation Requested: 02-08-24
Date/Time Consultation Performed: 02-08-24
Requesting Provider: Dr. Davila
Performing Provider: Dr. Lambert
Reason for Consultation: left antecubital septic thrombophlebitis with abscess
Chief Complaint / Past History
Chief Complaint
left upper extremity pain and swelling
History of Present Illness
Ganga Romo, age 43, came to the emergency on 02-06-24 with worsening left upper extremity pain and swelling. 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 One of the trainees successfully placed an IV on the
patient below the left upper extremity antecubital fossa without complications. The patient states that 'it was placed in a hurry, and the area may not have been thoroughly disinfected prior'. Symptoms began shortly after, and he came to the ED on
02-02-24 - he was prescribed cephalexin, which he has been compliant with. Noted that his symptoms continued to progress and he noted an area of fluctuance with abscess formation, so he came back to the ED on 02-06-24. Bedside ID was performed and
he was started on vancomycin and piperacillin-tazobactam. An I&D was performed the second time on 02-08-24 by general surgery in the morning.
Past History
Past Medical History: Other (essential hypertension, chronic insomnia; obesity; hypogonadism; generalized anxiety disorder; post-traumatic stress disorder; obstructive sleep apnea)
Past Surgical History: None
Allergy History:
levofloxacin [From Levaquin] Allergy (Verified 02/06/24 17:47)
pulmonary edema
Medications Reviewed: Yes
Social History
Tobacco: Non-Smoker
Alcohol: Occasional
Drug: None
Personal:
Living: With Family
Employment: Employed
Family History
Family History: Not Pertinent
Review of Systems
Review of Systems
General: Negative Fever or Chills
HEENT: Negative Lymphadenopathy, Stiff Neck or Headache
Cardiovascular: Negative Chest Pain or Palpitations
Respiratory: Negative Dyspnea or Cough
Gasteroenterology: Negative Weight Loss, Nausea or Vomiting
Genital / Urological: Negative Dysuria
Hematologic: Negative Bleeding Problems or Impaired Wound Healing
Musculoskeletal: Negative Joint Pain
Neurological: Negative Dizziness or Fainting
Psychological: Negative Sleep Changes
Vital Signs
Temp Pulse Resp BP Pulse Ox
97.9 F 75 16 162/93 99
02/08/24 08:00 02/08/24 09:20 02/08/24 08:00 02/08/24 09:20 02/08/24 08:00
Physical Exam
Physical Exam
Constitutional: No Acute Distress and Comfortable
Head: Normocephalic
Eyes: Pupils Equal and Pupils Round
Pharynx: Benign
Oral: No Ulcers
Lymph Nodes: Negative Lymphadenopathy
Cardiovascular: Regular Rate and S1/S2
Pulmonary: Clear and Non Labored
Gastrointestinal: Soft, Non Tender and Non Distended
Extremities: Negative Edema, Clubbing or Cyanosis
Musculoskeletal: Negative Joint Swelling
Skin: Warm and Dry
Wound: Other (erythematous 4 x 3 cm wound in left antecubital fossa)
Neurological: Awake, Alert, Oriented and No Motor Deficits
Psychological: Calm
Lab / Diagnostic Study Results
02/08/24 07:24
02/08/24 07:24
Abs Immat Gran (auto) 0.0 10^3/uL (0-0.05) 02/08/24 07:24
Absolute Neuts (auto) 3.6 10^3/uL (1.4-6.5) 02/08/24 07:24
Absolute Lymphs (auto) 1.3 10^3/uL (1.2-3.4) 02/08/24 07:24
Absolute Monos (auto) 0.5 10^3/uL (0.1-0.6) 02/08/24 07:24
Absolute Basos (auto) 0.0 10^3/uL (0-0.2) 02/08/24 07:24
Immature Gran % 0.7 % (0-0.5) H 02/08/24 07:24
Neutrophils % 63.5 % (42.2-75.2) 02/08/24 07:24
Lymphocytes % 23.2 % (20.5-51.1) 02/08/24 07:24
Monocytes % 8.9 % (1.7-9.3) 02/08/24 07:24
Eosinophils % 3.0 % (0-6) 02/08/24 07:24
Basophils % 0.7 % (0-2) 02/08/24 07:24
Microbiology Results
Micro:
02/06/24 20:25 Wound Culture - Preliminary
Abscess Staphylococcus aureus
Gram Stain - Preliminary
02/07/24 12:20 Blood Culture - Preliminary
Blood/Venous No Growth in 24 hours- Final report to follow
02/07/24 13:04 Wound Culture - Pending
Arm - Left Gram Stain - Preliminary
02/07/24 13:21 Blood Culture - Pending
Blood/Venous
02/07/24 13:04 Anaerobic Culture - Pending
Arm - Left
Assessment / Plan
Left antecubital fossa septic thrombophlebitis
Abscess secondary to above
Status-post I&D x2
- Afebrile with T-max of 99.6 F; not tachycardic; with no leukocytosis this admission.
- Wound culture: staphylococcus aureus.
- Discontinue piperacillin-tazobactam (2 days).
- Continue vancomycin (day 2), pending resistance results.
- Will probably require 4 weeks of antibiotic coverage due to vascular involvement.
- Wound care per general surgery.
Essential hypertension
Chronic insomnia
Obesity
Hypogonadism
Generalized anxiety disorder
Post-traumatic stress disorder
Obstructive sleep apnea
[2024-02-08] MEDS: ZOSYN IV (14:56)
[2024-02-08 16:00] VITALS: BP 162/89
[2024-02-08] MEDS: LOVENOX 40 MG SC (18:20)
[2024-02-08] MEDS: AMBIEN 10 MG PO (22:04)
[2024-02-08] MEDS: BENADRYL 50 MG PO (22:04)
[2024-02-08 23:28] VITALS: BP 166/108
[2024-02-09 01:33] LABS: Vancomycin Peak 10.4 ug/ml (18-26)
[2024-02-09 05:15] VITALS: BP 139/87
[2024-02-09 06:00] VITALS: BMI 36.5
[2024-02-09] MEDS: DILAUDID 1 MG IV ×2 (06:52→10:52)
[2024-02-09 07:45] VITALS: BP 144/92
[2024-02-09] MEDS: VANCOCIN 300 ML IV (07:45)
[2024-02-09] MEDS: VANCOCIN 300 MG IV (07:45)
[2024-02-09] MEDS: DIOVAN 320 MG PO (07:45)
[2024-02-09] MEDS: TOPROL XL 50 MG PO (07:46)
[2024-02-09 08:54] LABS: Blood Urea Nitrogen 14 mg/dl (9-20); Estimated Creatinine Clearance 121 ml/min
--- NOTE | 2024-02-09 09:58 | PHA.VAN.FU ---
Addendum entered and electronically signed by Joy Baeza Riya 02/09/24 10:36:
Agree with resident's assessment and plan. Vancomycin has since been discontinued.
Original Note:
Vancomycin Assessment / Plan
- Assessment
Renal Function: Stable
WBC's are: WNL
In the past 24 hrs, patient has been: Afebrile
Concomitant Antimicrobials: Cefazolin
- Dosing Plan
Adjust Regimen to: Vanco 1750mg Q12H Starting 02/08 1800
New Regimen Predicts: AUC (520), Peak (35.3), Trough (11.7)
- Monitoring Plan
No level(s) ordered at this time: consider levels in the next few days
- Follow Up
Pharmacy will continue to follow.
Vancomycin Follow UP
- -
Patient Age: 43
Patient Sex: Male
Vancomycin Day #: 3
Indication: Skin And Soft Tissue
Requesting Provider: ROBINA
Pertinent Antimicrobial Allergies:
levofloxacin -> pulmonary edema
Height / Weight:
Height 5 ft 10 in
Actual Weight 115.52 kg
Pertinent Past Medical History: BMI~36;TBI (2022)
- Vital Signs / Lab Results
Temp Pulse Resp BP Pulse Ox
97.8 F 61 20 144/92 96
02/09/24 07:45 02/09/24 07:45 02/09/24 07:45 02/09/24 07:45 02/09/24 07:45
Lab Results - Hematology
02/06/24 02/07/24 02/08/24
19:29 08:11 07:24
WBC 8.7 7.1 5.6
Lab Results - Chemistry
02/06/24 02/07/24 02/08/24
19:29 08:11 07:24
BUN 15 14 11
Creatinine 1.1 1.2 1.1
Estimated Creat Clear 113 101 110
Albumin 4.9 4.3
02/09/24
07:50
BUN 14
Creatinine 1.0
Estimated Creat Clear 121
Albumin
Microbiology Results
02/07/24 13:04 Anaerobic Culture - Preliminary
Arm - Left Culture pending. Anaerobic cultures are examined after 3
days incubation. Additional information to follow.
02/07/24 13:04 Wound Culture - Preliminary
Arm - Left S aureus-Methicillin Sensitive
Gram Stain - Preliminary
02/06/24 20:25 Wound Culture - Final
Abscess S aureus-Methicillin Sensitive
Gram Stain - Final
02/07/24 13:21 Blood Culture - Preliminary
Blood/Venous No Growth in 24 hours- Final report to follow
02/07/24 12:20 Blood Culture - Preliminary
Blood/Venous No Growth in 24 hours- Final report to follow
Therapeutic Drug Monitoring
Vancomycin Peak 10.4 ug/ml (18-26) L 02/09/24 00:53
Vancomycin Trough Cancelled 02/09/24 09:30
[2024-02-09] MEDS: ANCEF 10 IV (10:24)
--- NOTE | 2024-02-09 11:48 | W.PN.ID1 ---
Date of Service
Date of Service: February 09, 2024
Today's Communication
Can transition IV abx to doxycycline 100mg po bid through 03/05/24.
Assessment / Plan
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
#Left antecubital fossa septic thrombophlebitis
#Left antecubital fossa large abscess status-post I&D x2
- Venous duplex - nonocclusive thrombus in left basilic vein in left AC.
-Blood cultures x 2 negative to date
- Wound cultures MSSA
- Can transition IV abx to doxycycline 100mg po bid through 03/05/24.
Treating longer due to probable infected thrombus/phlebitis.
Use of doxycycline over cephalexin for better bioavailability and fewer pill burden.
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
Essential hypertension
Chronic insomnia
Obesity
Hypogonadism
Generalized anxiety disorder
Post-traumatic stress disorder
Obstructive sleep apnea
Chief Complaint
-: Cellulitis and Other (abscess)
Subjective / Review of Systems
No new complaints
Vital Signs / Physical Exam
Vital Signs
Vital Signs
Temp Pulse Resp BP Pulse Ox
97.8 F 61 20 144/92 96
02/09/24 07:45 02/09/24 07:45 02/09/24 07:45 02/09/24 07:45 02/09/24 07:45
Physical Exam
Constitutional: No Acute Distress
Pulmonary: Clear
Gastrointestinal: Soft, Non Tender and Non Distended
Wound: Other (L antecubital fossa + large induration with central wound packing, surrounding erythema receding from marked line)
Neurological: AO x 3
Objective Data
Lab Data
Lab Results
02/08/24 07:24
02/09/24 07:50
Estimated Creat Clear 121 ml/min 02/09/24 07:50
Total Bilirubin 0.4 mg/dl (0.2-1.3) 02/08/24 07:24
AST 27 U/L (17-59) 02/08/24 07:24
ALT 30 U/L (0-50) 02/08/24 07:24
Alkaline Phosphatase 66 U/L (38-126) 02/08/24 07:24
Most recent labs reviewed.
Micro Results:
02/07/24 13:04 Anaerobic Culture - Preliminary
Arm - Left Culture pending. Anaerobic cultures are examined after 3
days incubation. Additional information to follow.
02/07/24 13:04 Wound Culture - Preliminary
Arm - Left S aureus-Methicillin Sensitive
Gram Stain - Preliminary
02/06/24 20:25 Wound Culture - Final
Abscess S aureus-Methicillin Sensitive
Gram Stain - Final
02/07/24 13:21 Blood Culture - Preliminary
Blood/Venous No Growth in 24 hours- Final report to follow
02/07/24 12:20 Blood Culture - Preliminary
Blood/Venous No Growth in 24 hours- Final report to follow
Care Review
Plan reviewed with: Physician (Dr. Davila)
--- NOTE | 2024-02-09 11:48 | W.PN.HOSP.TC ---
Today's Communication/Plan
-
po doxy
Assessment / Plan
Assessment / Plan
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 fluid collection was I&D in ED
A/P:
#L antecubital septic thrombophlebitis with abscess
CT noted
VAnco/Zosyn started on admission.
s/p I&D at bedside by surgery. Culture sent to lab and found to be MSSA
Wound care changes of management per surgery. Recommend outpatient [facility] versus wound care center follow-up.
Pain mgmt
Blood cultures pending.
Abx transitioned to IV cefazolin and transition to p.o. doxycycline on discharge.
#TAMI
cont CPAP
#Left pectoralis muscle tear
rest. avoid strenuous work out.
#EssentiaL HTN
cont Diovan 320 mg daily
#Obesity
on Wygovi at home
DVT ppx lovenox
Full code'
Discussed with ID
Dispo Home. Recommended outpatient wound care follow-up.
More than 30 minutes spent in discharge including
Final examination of the patient
Summarizing hospital stay
Instructions for continuing care to all relevant caregivers
Preparation of discharge records, prescriptions, and referral forms
Total time spent (in minutes): 53
Anticipated Discharge: Today
Subjective/Interval History
-
Date of Service: February 09, 2024
states swelling has improved
eager to go home
Objective Data
-
Labs:
Laboratory Results
02/09/24
07:50
BUN 14
Creatinine 1.0
Vital Signs:
Vital Signs
Temp Pulse Resp BP Pulse Ox
97.8 F 61 20 144/92 96
02/09/24 07:45 02/09/24 07:45 02/09/24 07:45 02/09/24 07:45 02/09/24 07:45
I&O
02/08/24 02/09/24 02/10/24
06:59 06:59 06:59
Intake Total 1140 / 1140
Balance 1140 / 1140
Physical Exam
-
General: No Apparent Distress
HEENT: Normocephalic
Respiratory: Clear to Auscultation
Cardiac: Regular Rhythm
GI: Soft, Nontender and Nondistended
Musculoskeletal: No Clubbing and No Cyanosis
Skin: Other (LUE antecubital open wound with dressing noted. improvement in erythema)
Neuro: Awake, Alert, Oriented and AO x 3
Psych: Calm
--- NOTE | 2024-02-09 12:48 | W.DCSUMMARY ---
Discharge Summary
Discharge Data
Date of Admission: 02/06/24
Date of Discharge: 02/09/24
-
Pending Results: No
Hospital Course
43-year-old male past medical history of TAMI, primary hypertension, obesity who is presenting with swelling in left antecubital fossa. 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 Venous duplex with nonocclusive thrombus in
basilic vein left AC. Blood cultures were checked and found to be negative. CT of the left upper extremity with There is moderate increased density to the subcutaneous tissues diffusely of the left upper extremity suggesting edematous change. This
begins mcfp between the shoulder and elbow and extends diffusely to the level of the distal forearm. General surgery was consulted and patient underwent bedside incision and drainage. Drainage culture results with MSSA. Vancomycin was
continued. Infectious disease was consulted. Patient was taken off of IV vancomycin and transition to cefazolin. Patient was significant improvement in wound erythema and swelling. Patient with transition to p.o. doxycycline through 03/05/2024.
Patient was recommended follow-up outpatient with primary surgeon and wound care center.
Discharge Plan
-
Patient Disposition: Home (Routine Discharge)
Discharge Diagnosis/Procedures: Left antecubital septic thrombophlebitis with abscess status post incision and drainage
Condition: Fair
Diet: As tolerated
Activity: With assistance, As tolerated and No strenuous activity
Additional Activity: Suspected focal edema in the left pectoralis muscle possibly due to a muscular tear on CT scan. Recommend rest and avoid strenuous work and heavy lifting.
Wound Care: Pack wound daily with 1/2 ' iodoform gauze and cover with dry gauze dressing and wrap with gauze roll. Change outer dressing as needed for drainage throughout the day.
Activity Restrictions/Additional Instructions:
Wound care instructions:
Remove packing before showering. Okay to use soap and water let it run over the wound and then pat dry.
Repack wound with a single piece of quarter inch iodoform gauze packing strip. Cover with gauze and secured in place with a Kerlix dressing.
Take your antibiotic medications as prescribed.
Follow-up:
Please call to set up a follow-up appointment with your surgeon in 1 week or if you have any questions or concerns. [phone]
doxycycline 100mg po bid through 03/05/24.
Doxycycline Precautions
�� Take with at least 6 oz H2O
�� Take with food but no calcium containing products like milk or cheese
�� Ideally you would not take any multivitamins, calcium, magnesium or zinc containing products.
�� If you must take one of these products make sure that the pills are by at least 3 hours.
�� Sit up for at least 30 minutes after each dose to prevent heartburn.
�� Your skin will be more sensitive to the sun while you are on doxycycline - it will be very easy for you to get a sunburn.
Referrals:
Dallin Rabago MD [Active] - in less than 1 week (call to make appointment for post drainage management. )
Naa Nogueira MD [Family Provider] - in less than 1 week
[facility] [[facility]] - in less than 1 week (call to make appointment)
Prescriptions:
New
doxycycline hyclate 100 mg tablet
100 mg PO BID 26 Days Qty: 52 0RF
Continued
clonazepam 1 mg Tablet
1 mg PO HSPRN PRN (Reason: Insomnia)
zolpidem [Ambien] 10 mg Tablet
10 mg PO HS
testosterone cypionate 200 mg/mL Kit
200 mg IM Q2W
Wegovy 0.5 mg/0.5 mL Pen Injector
0.5 mg SC QWEEK
tramadol 25 mg Tablet
25 mg PO Q6H PRN (Reason: Pain / Headache)
valsartan 320 mg Tablet
320 mg PO DAILY
diphenhydramine HCl 50 mg Capsule
50 mg PO HS
metoprolol succinate 50 mg tablet extended release 24 hr
50 mg PO DAILY
Discharge Orders:
Discharge Patient (As Directed); Ordered 02/09/24
Ordered By: Lucien Davila
Discharge Date and Time
Discharge Date/Time: 02/09/24 13:13
Print Language: [id number]
--- NOTE | 2024-02-09 12:53 | CM ---
CM reviewed chart, patient for discharge today. CM placed call to [facility], confirmed patient clinicals have been received, confirmed patient can call to schedule appointment. Patient seen bedside, provided with Wound Center contact
information, instructed to make an appointment. Patient reports he will make appointment today. Patient reports he will drive himself home. CM will continue to follow for all discharge planning needs.
Plan; home, follow up with Wound Center.
[2024-02-09 12:59] VITALS: BP 167/86
== END 2024-02-09 13:13 | disposition home or self-care (01) | DRG 603 ==
LOC: 4 EAST ACU 21:41
PROVIDERS: Internal Medicine; Physician Assistant; ADMITTING PHYSICIAN Hospitalist; ATTENDING PHYSICIAN Hospitalist; CONSULT PHYSICIAN Internal Medicine Infectious Disease; CONSULT PHYSICIAN Surgery; EMERGENCY PHYSICIAN Emergency Medicine; FAMILY PHYSICIAN Family Medicine
PROC: 0H9EXZZ Drainage of Left Lower Arm Skin, External Approach (ICD-10-PCS; 2024-02-06)
PROC: 0J9H0ZZ Drainage of Left Lower Arm Subcutaneous Tissue and Fascia, Open Approach (ICD-10-PCS; 2024-02-07)
DX: L02.414 Cutaneous abscess of left upper limb (principal); I96 Gangrene, not elsewhere classified; L03.114 Cellulitis of left upper limb; B95.61 Methicillin susceptible Staphylococcus aureus infection as the cause of diseases classified elsewhere; I10 Essential (primary) hypertension; G47.33 Obstructive sleep apnea (adult) (pediatric); F41.1 Generalized anxiety disorder; F43.10 Post-traumatic stress disorder, unspecified; F51.04 Psychophysiologic insomnia; E29.1 Testicular hypofunction; I80.8 Phlebitis and thrombophlebitis of other sites; E66.09 Other obesity due to excess calories; Z68.36 Body mass index [BMI] 36.0-36.9, adult; Z87.820 Personal history of traumatic brain injury; Z88.1 Allergy status to other antibiotic agents; Z79.85 Long-term (current) use of injectable non-insulin antidiabetic drugs
CPT/HCPCS: 10060; 73201; 80048; 80053; 80202; 82565; 84520; 85025; 85027; 87040; 87070; 87075; 87147; 87186; 87205; 96365; 96366; 96375; 96376; 99285; Q9967